=== PATIENT | female | born 1955 | race Caucasian/White ===

== ENCOUNTER → 2019-05-18 | Outpatient (CLI) | payer MEDICARE, MEDICAID ==
[~2019-05-18] MED LIST: ALTA10CA; BREO1INH INH; COMBAER6 INH; FISHCAP; LEVO25TA5 PO; LEVO750T13 PO; NORT25CA2; PREG100CA; SAVELLA; SEVELLA; SKEL800T5; VITAMIN D50000 UNT
--- NOTE | 2019-05-22 10:07 | SLEEPCENT ---
DATE OF PROCEDURE: 05/18/2019 ORDERED BY: Sandra Shanks NP Nocturnal polysomnography was performed for evaluation of sleep physiology in this patient with a history of snoring and nonrestorative sleep who has comorbidities of hypertension, hypothyroidism and obstructive lung disease. 8 hours and 43 minutes of data were reviewed. There are 362 minutes of sleep identified. Sleep latency was short at 6.5 minutes. Rapid eye movement (REM) latency was prolonged at 268 minutes. Sleep architecture showed severe fragmentation. There was one brief REM cycle. Overall sleep efficiency 69.9%. The patient's electrocardiogram showed a sinus rhythm with an average heart rate of 88 beats per minute. Electroencephalogram (EEG) showed normal waveforms for awake and sleep stages with some minor alpha intrusion. There were 404 respiratory events identified of 10 seconds in duration or greater for an apnea-hypopnea index of 67. The events were obstructive not exclusive to sleep stage nor body posture. Arousals from respiratory events occurred 53 times per hour, oxygen desaturations were seen into the low 80s. Some limb activity was also noted but arousals from limb events were few. IMPRESSION: Severe obstructive sleep apnea syndrome (G47.33). Apnea-hypopnea index 67.0. RECOMMENDATIONS: The patient should be encouraged to return to sleep disorder center at her earliest convenience for the application of pressure therapy. In the interim, alcohol and sedative avoidance should be practiced and caution exercised during the operation of motor vehicles.
== END ==
LOC: M SLEEP 20:00
PROVIDERS: ATTEND Nurse Practitioner Family
DX: G47.33 Obstructive sleep apnea (adult) (pediatric) (principal)

== ENCOUNTER → 2019-05-25 | Outpatient (CLI) | payer MEDICARE, MEDICAID ==
[~2019-05-25] MED LIST changes: +ANOR1AER INH; +ARNU1INH3 INH; +LASI20TA3 PO; +LASI40TA9 PO; +VITA1CAP25 PO
--- NOTE | 2019-05-28 14:33 | SLEEPCENT ---
DATE OF PROCEDURE: 05/25/2019 ORDERED BY: URBAN Mota Nocturnal polysomnography was performed for the titration of pressure therapy in this patient with obstructive sleep apnea syndrome. Apnea-hypopnea index of 67. For testing a Casimiro, Simplus full-face mask of small size was used; 4 cm of water pressure were applied to the circuit and the lights were extinguished. 7 hours and 34 minutes of data were reviewed. There were 335 minutes of sleep identified. Sleep latency was short at 5 minutes. Rapid eye movement (REM) latency was short at 62 minutes. Sleep architecture was fairly good with 2 REM cycles. Overall sleep efficiency 74.6%. The patient's electrocardiogram showed sinus rhythm with an average heart rate of 60 beats per minute. Occasional premature ventricular contractions (PVCs) were noted. Electroencephalogram (EEG) showed reasonably normal waveforms for awake and sleep. Respiratory events were best palliated with CPAP at a pressure of +9. There was scattered limb activity but remaining measures of sleep physiology were normal. IMPRESSION: Obstructive sleep apnea syndrome (G47.33)/ RECOMMENDATIONS: Nightly use of pressure therapy 9 cm of water.
== END ==
LOC: M SLEEP 20:00
PROVIDERS: ATTEND Nurse Practitioner Family
DX: G47.33 Obstructive sleep apnea (adult) (pediatric) (principal)

== ENCOUNTER 2019-06-06 09:57 | Day surgery (SDC) | payer MEDICARE, MEDICAID ==
[~2019-06-06] VITALS: Ht 167.6 cm; Wt 123.7 kg
[2019-06-06] MEDS ORDERED: PROPOFOL 200 MG/20 ML VIAL As Ordered ONE (11:50)
[2019-06-06] MEDS ORDERED: MIDAZOLAM INJ 2 MG/2 ML VIAL (J2250) As Ordered ONE (11:50)
[2019-06-06] MEDS ORDERED: LIDOCAINE 2% INJ 100 MG/5 ML SDV (FOR ANES.) As Ordered ONE (11:50)
[2019-06-06] MEDS ORDERED: ROCURONIUM BROMIDE 50 MG/5 ML VIAL As Ordered ONE ×2 (11:50→13:25)
[2019-06-06] MEDS ORDERED: fentaNYL 100 MCG/2 ML INJECTION (J3010) As Ordered ONE (11:50)
[2019-06-06] MEDS ORDERED: ceFAZolin 2 GM/D5W 50 ML IV BAG (J0690 PER 500MG) As Ordered ONE (12:53)
[2019-06-06] MEDS ORDERED: ceFAZolin SOD 2 GM in IV 1 EA IV ONE (13:00)
[2019-06-06] MEDS ORDERED: ONDANSETRON 4MG/2ML VIAL (J2405) As Ordered ONE (13:25)
[2019-06-06] MEDS ORDERED: dexameTHASONE 4 MG/ML 1ML VIAL (J1100) As Ordered ONE (13:25)
[2019-06-06] MEDS ORDERED: ePHEDrine SULFATE 25 MG/5 ML(5MG/ML) SYRINGE As Ordered ONE (13:32)
[2019-06-06] MEDS ORDERED: HYDROmorphone HCL 2 MG/ML 1ML VIAL (J1170) As Ordered ONE (13:42)
[2019-06-06] MEDS ORDERED: SUGAMMADEX SODIUM 500 MG/5 ML VIAL (BRIDION) As Ordered ONE (13:44)
[2019-06-06] MEDS ORDERED: METOCLOPRAMIDE INJ 10MG/2ML VIAL (J2765) As Ordered ONE (13:45)
--- NOTE | 2019-06-06 14:51 | REP ---
RETROGRADE PYELOGRAM: Four views. HISTORY: Cystoscopy. Bilateral ureteral stent. 9 seconds of fluoroscopy time is reported. FINDINGS: A sequence of four last image hold fluoroscopically obtained spot radiographs document ureteral cannulation, contrast injection, and stent positioning unilaterally. No laterality markers are visible. Electronically Signed by Luisito Smith MD 06/06/2019 04:44 P
[2019-06-06] MEDS ORDERED: ACETAMINOPHEN TAB 650MG DOSE (2X325MG) PO PRN (15:00)
[2019-06-06] MEDS ORDERED: ONDANSETRON 4MG/2ML VIAL (J2405) IV PRN (15:00)
[2019-06-06] MEDS ORDERED: oxyCODONE 5MG TAB PO PRN (15:00)
[2019-06-06] MEDS ORDERED: fentaNYL 100 MCG/2 ML INJECTION (J3010) IV PRN (15:00)
[2019-06-06] MEDS ORDERED: LR 1,000 ML IV SCH (15:00)
[2019-06-06] MEDS ORDERED: oxyBUTYnin 5 MG TAB PO PRN (15:15)
[2019-06-06 17:20] VITALS: BP 143/67
--- NOTE | 2019-06-06 22:25 | RO ---
DATE OF PROCEDURE: 06/06/2019 PREPROCEDURE DIAGNOSIS: Right renal and bladder tumors. POSTPROCEDURE DIAGNOSIS: Right renal and bladder tumors. PROCEDURES: Cystoscopy, right ureteroscopy with biopsies, right retrograde pyelogram with intraoperative interpretation of images, right ureteral stent placement, transurethral resection of bladder tumors (between 2 and 5 cm), examination under anesthesia. SURGEON: Dr. Justin Turcios GAS STATION MANAGER: None. ANESTHESIA: General. OPERATIVE INDICATIONS: This is a 63-year-old female, who on recent CT scan was found to have lesions in her right kidney concerning for tumors as well as in her bladder concerning for tumors. She was brought to the operating room today for the above listed procedures. DESCRIPTION OF PROCEDURE: The patient was brought to the operating room and general anesthesia was induced. Prophylactic antibiotics were infused. She was then placed in the dorsal lithotomy position and prepped and draped in the usual sterile fashion. At this point, a bimanual pelvic examination was performed under anesthesia. The bladder was freely mobile. There were no palpable bladder masses. After that, the cystoscope was inserted. The bladder was then thoroughly examined with both the 30- then 70-degree lenses. Three tumors were seen inside the bladder. One was on the right lateral wall near the bladder neck, the other two were in the left lateral wall, totalling between 2 and 5 cm. At this point, a guidewire was advanced up the right collecting system. I then advanced a ureteral access sheath up the right collecting system. I then examined the right kidney and of note, the patient had a very large amount of papillary tumors occupying the right renal pelvis and extending into the upper pole of the right kidney. Also, approximately at the ureteropelvic junction, there were additional papillary tumors. I then utilized biopsy forceps to take several biopsies of the tumors from the right renal pelvis to be sent for pathological analysis. Once that was done, a retrograde pyelogram was performed and is notable for mild right hydronephrosis with a filling defect in the renal pelvis and upper pole of the kidney. There was no extravasation. I then withdrew the ureteroscope along with the access sheath and no definite additional tumors were seen within the ureter. I then utilized the wire to advance a #7-Nicaraguan x 22-32 cm JJ ureteral stent up to the right collecting system. The wire was removed, and there were adequate curls of the stent in the right renal pelvis and in the bladder. At this point, I inserted a resectoscope and utilized it to resect all the tumors inside the bladder. I made sure to get samples down to the muscle layer. Once done with the resection, the areas of resection were then cauterized until there was good hemostasis. Once that was done, all of the tumors were removed from the bladder using an [employer] evacuator. Once satisfied there was good hemostasis and all the tumors were removed, the resectoscope was removed and an #18-Nicaraguan Mcclain catheter was inserted into the bladder. The balloon was filled with 10 mL of sterile water, and the catheter was connected to gravity drainage. This marked the conclusion of the procedure. The patient was then taken out of the dorsal lithotomy position, awakened from anesthesia and transported to the recovery room in stable condition. Estimated blood loss: 5 mL. Complications: None. Specimens: Tumor from right renal pelvis, bladder tumors. PLAN: The patient will followup in the clinic in approximately 1 week to discuss pathology results and have catheter removed. CONNER
[2019-06-26] MEDS ORDERED: APAP500T10 PO (14:26)
[2019-06-26] MEDS ORDERED: DITR5TAB PO (14:26)
[2019-06-26] MEDS ORDERED: AMOX875T2 PO (14:26)
== END 2019-06-06 18:00 | disposition home or self-care (01) ==
LOC: M SDC 09:57
PROVIDERS: ATTEND Urology
DX: C67.9 Malignant neoplasm of bladder, unspecified (principal); I10 Essential (primary) hypertension; E03.9 Hypothyroidism, unspecified; E04.1 Nontoxic single thyroid nodule; K57.30 Diverticulosis of large intestine without perforation or abscess without bleeding; G62.9 Polyneuropathy, unspecified; M12.9 Arthropathy, unspecified; J44.9 Chronic obstructive pulmonary disease, unspecified; R06.83 Snoring; G47.33 Obstructive sleep apnea (adult) (pediatric); F17.218 Nicotine dependence, cigarettes, with other nicotine-induced disorders; Z88.1 Allergy status to other antibiotic agents; Z88.6 Allergy status to analgesic agent; Z79.899 Other long term (current) drug therapy; Z12.2 Encounter for screening for malignant neoplasm of respiratory organs; Z96.1 Presence of intraocular lens; Z90.710 Acquired absence of both cervix and uterus
CPT/HCPCS: 52235; 52332; 74420; 88305; 88307; C1769; C1894; C2617; G0297; J0690; J1100; J1170; J2250; J2405; J2765; J3010

== ENCOUNTER → 2019-06-06 | Outpatient (CLI) | payer MEDICARE, MEDICAID ==
--- NOTE | 2019-06-06 10:44 | REP ---
LOW DOSE LUNG SCREENING CT: Low dose lung screening CT exam is accomplished in the axial plane. There are no prior CT chest exams for comparison. There is a 3 mm nodular opacity in the left upper lobe posteriorly on image 23. This is of doubtful significance. No other definite focal nodular opacities are seen. There are scattered linear fibrotic scars present predominantly in the lung bases. No consolidation is seen. The heart is not significantly enlarged. No pleural effusion is seen. The mediastinal contours appear unremarkable. There are degenerative changes of the spine. IMPRESSION: Lung RADS category [address] There is a single 3 mm nodular density posterior left upper lobe, which is of doubtful significance. Continue annual screening CT of the lungs in 12 months. Electronically Signed by Castro Arana MD 06/06/2019 11:08 A
== END ==
LOC: M RAD 09:24
PROVIDERS: ATTEND Nurse Practitioner Family
DX: Z12.2 Encounter for screening for malignant neoplasm of respiratory organs (principal); F17.218 Nicotine dependence, cigarettes, with other nicotine-induced disorders

== ENCOUNTER → 2019-06-26 | Outpatient (CLI) | payer MEDICARE, MEDICAID ==
[~2019-06-26] MED LIST changes: +AMOX875T2 PO; +APAP500T10 PO; +DITR5TAB PO
--- NOTE | 2019-06-27 04:37 | REP ---
Clinical: Follow-up pulmonary nodule. Comparison: 06/06/2019. Technique: Axial noncontrast images from the thoracic inlet to the upper abdomen with coronal and sagittal re-formations. Findings: Bilateral lung lipscomb are relatively well aerated, symmetric and essentially clear. A 2 mm noncalcified nodule in the periphery of the right upper lobe (image 48), and a 1-2 mm noncalcified subpleural nodule in the posterior periphery of the left upper lobe (image 48) both remain stable. 2 mm noncalcified subpleural nodule in the left lower lobe (image 75) also remains stable. No new acute consolidation, significant nodule or mass lesion. No pleural effusion. No pneumothorax. Tracheobronchial tree is patent. Mediastinum is relatively normal. Minimal atherosclerotic changes to the thoracic aorta and coronary arteries noted. Surrounding musculoskeletal structures are intact. Impression: Small relatively insignificant noncalcified nodules up to 2 mm remain unchanged. No new acute or significant mediastinal or pleuroparenchymal process appreciated. Electronically Signed by Ramiro Villa MD 06/27/2019 04:27 A
== END ==
LOC: M RAD 14:06
PROVIDERS: ATTEND Nurse Practitioner Family
DX: R91.8 Other nonspecific abnormal finding of lung field (principal)

== ENCOUNTER 2019-07-14 05:36 | Inpatient (IN) | payer MEDICARE, MEDICAID ==
[~2019-07-14] VITALS: Ht 170.2 cm; Wt 120.5 kg
[2019-07-14] MEDS ORDERED: LR 1,000 ML IV ONE (06:00)
[2019-07-14] MEDS ORDERED: BUPIVACAINE HCL 0.25% 30 ML VIAL As Ordered ONE (07:15)
[2019-07-14] MEDS ORDERED: LIDOCAINE 1% SDV INJ 30 ML VIAL As Ordered ONE (07:15)
[2019-07-14] MEDS ORDERED: ceFAZolin 2 GM/D5W 50 ML IV BAG (J0690 PER 500MG) As Ordered ONE (07:25)
[2019-07-14] MEDS ORDERED: PERCOCET 5MG/325MG TAB PO PRN (07:45)
[2019-07-14] MEDS ORDERED: MORPHINE 4 MG/ML 1ML VIAL/SYRINGE (J2270) IV PRN (07:45)
[2019-07-14] MEDS ORDERED: ONDANSETRON 4MG/2ML VIAL (J2405) IV PRN ×2 (07:45→14:45)
[2019-07-14] MEDS ORDERED: ceFAZolin SOD 2 GM in IV 1 EA IV ONE (08:00)
[2019-07-14] MEDS ORDERED: ONDANSETRON 4MG/2ML VIAL (J2405) As Ordered ONE (08:11)
[2019-07-14] MEDS ORDERED: LIDOCAINE 2% INJ 100 MG/5 ML SDV (FOR ANES.) As Ordered ONE (08:11)
[2019-07-14] MEDS ORDERED: fentaNYL 250 MCG/5 ML INJECTION (J3010) As Ordered ONE (08:11)
[2019-07-14] MEDS ORDERED: dexameTHASONE 4 MG/ML 1ML VIAL (J1100) As Ordered ONE (08:11)
[2019-07-14] MEDS ORDERED: MIDAZOLAM INJ 2 MG/2 ML VIAL (J2250) As Ordered ONE (08:11)
[2019-07-14] MEDS ORDERED: ROCURONIUM BROMIDE 50 MG/5 ML VIAL As Ordered ONE ×3 (08:11→11:06)
[2019-07-14] MEDS ORDERED: PROPOFOL 200 MG/20 ML VIAL As Ordered ONE ×2 (08:11→13:51)
[2019-07-14] MEDS ORDERED: ALBUTEROL 6.7GM INHALER **FOR ANES. CART/OMNICELL ONLY As Ordered ONE (08:20)
[2019-07-14] MEDS ORDERED: LACRILUBE (AKWA TEARS) OPHTH OINT 3.5 GM As Ordered ONE (08:20)
[2019-07-14] MEDS ORDERED: ePHEDrine SULFATE 25 MG/5 ML(5MG/ML) SYRINGE As Ordered ONE (08:25)
[2019-07-14] MEDS ORDERED: COMBIVENT RESPIMAT 100-20MCG INHALER 4GM INH SCH (09:00)
[2019-07-14] MEDS ORDERED: HYDROmorphone HCL 2 MG/ML 1ML VIAL (J1170) As Ordered ONE (09:17)
[2019-07-14] MEDS ORDERED: SUGAMMADEX SODIUM 500 MG/5 ML VIAL (BRIDION) As Ordered ONE (09:20)
[2019-07-14] MEDS ORDERED: ACETAMINOPHEN 1000MG 100ML IV BTL (OFIRMEV) (J0131 PER 10MG) As Ordered ONE (12:49)
[2019-07-14] MEDS ORDERED: oxyCODONE 5MG TAB PO PRN (14:45)
[2019-07-14] MEDS ORDERED: LR 1,000 ML IV SCH (14:45)
[2019-07-14] MEDS ORDERED: fentaNYL 100 MCG/2 ML INJECTION (J3010) IV PRN (14:45)
[2019-07-14] MEDS: HYDROMORPHONE HCL 0.5 MG/ 0.5 ML SYRINGE (J1170 PER 1) IV PRN ×3 (14:48→14:57)
--- NOTE | 2019-07-14 14:49 | ROOPDOC ---
[facility] Report Of Operation Report of Operation DATE OF PROCEDURE: 07/14/19 PREPROCEDURE DIAGNOSES: Urothelial Carcinoma of the Right Kidney. POSTPROCEDURE DIAGNOSES: Urothelial Carcinoma of the Right Kidney. PROCEDURE: Right Robotic-assisted Laparoscopic Radical Nephroureterectomy with Bladder Cuff, Cystoscopy with Incision of the Right Ureteral Orifice. SURGEON: Valentina Rizo MD WOOD CALKER: Klarissa Duron NP ANESTHESIA: General OPERATIVE INDICATIONS: This is a 63 year old female who was recently found to have low grade urothelial carcinoma involving her entire right renal pelvis. She was brought to the operating room today for the above procedure. DESCRIPTION OF PROCEDURE: The patient was brought to the operating room and general anesthesia was induced. Prophylactic antibiotics were infused. The patient was then placed in the dorsal lithotomy position and prepped and draped in the usual sterile fashion. A rigid cystoscope was inserted into the bladder and the previously placed right ureteral stent was seen. At this point a resectoscope was inserted into the bladder and a circumferential incision was made around the right ureteral orifice using a Larsen Knife. The incision was carried down through the muscle layer. Once this was done and hemstasis was established an 18Fr Mcclain catheter was placed and the balloon was inflated with 10cc of sterile water. The catheter was then placed to gravity drainage. The patient was then taken out of the dorsal lithotomy position. She was then repositioned in the left lateral decubitus position. All pressure points were appropriately padded and an axillary roll was placed. She was secured to the table with tape. The patient was then prepped and draped in the usual sterile fashion. The initial incision was for an 8mm port in line with the 11th rib along the lateral rectus margin. A Veress needle was then utilized to achieve the pneumoperitoneum. An 8mm port was then placed in through this incision and through which the camera was inserted. There were no injuries from Veress needle placement or initial trocar placement. The remaining ports were then placed under direct vision. The right hand robotic port was placed along the costal margin. Another 5 mm port was placed just inferior to the xyphoid for access for a liver retractor. A 12mm robotic port was placed just inferior to the camera port, also on the lateral rectus margin. The left hand robotic port was placed between the anterior-superior iliac spine and the umbilicus. A 15mm health education assistant port was placed inferior and medial to the camera port. The robot was then docked. We began by lifting up the liver with a laparoscopic locking Allis clamp. Next the right colon was dissected off of Gerota's fascia. We then Kocherized the duodenum. At this point the inferior vena cava (IVC) was identified. A plane was made onto the lateral aspect of the IVC. Of note, two renal veins were identified. One artery was identified in between the 2 veins. The artery was carefully dissected and then ligated with Weck clips. It was then transected, leaving 2 Weck clips on the stay side and 1 on the kidney side. Next, a robotic 45mm stapler was utilized to ligate and transect both right renal veins. Once the hilum was taken, a plane onto the upper pole of the kidney was created and the right adrenal gland was mobilized off of the kidney. The kidney was then carefully dissected on all sides until it was only connected by the right ureter. The right ureter was then dissected down to the level of the bladder. The bl adder was then opened at the right ureterovesical junction and the distal right ureter was released from the bladder with a bladder cuff. The previously placed stent was taken out with the kidney and ureter. The right kidney and ureter were then placed in a large Endocatch bag for future retrieval. We then checked for hemostasis and it appeared excellent. Vincent hemostatic agent was then placed in the nephrectomy bed. At this point a Britton Ying drain was brought in through one of the robotic port sites and the distal end of it was placed in the pelvis near the bladder. Once satisfied with hemostasis, the robot was undocked. We th en used a Uriel fascial closure device to place a #0 Vicryl free ties through the fascia of the 15 mm health education assistant port sites. We then extended the 12 mm robotic port site incision. We then dissected down to the fascia. The fascia was then extended using electrocautery. The muscle was bluntly spread. The specimen was then extracted through this incision. It was handed off the table to send for pathology. We then closed the extraction incision, starting first by reapproximating the muscle with figure of eight #0 Vicryl suture. The fascia was then closed using a running #0 Vicryl suture. At this point, the abdomen was reinsufflated and we looked back in with the camera and there was no bleeding underneath the extraction site. No abdominal contents were caught within the closure either. We then removed all the ports under direct vision and there was no bleeding from any of the port sites. At this point, the previously placed #0 Vicryl free ties were tied down and all the incisions were thoroughly irrigated. The drain was secured to the skin with #2-0 Ethilon suture. The subcutaneous tissue of the extraction incision was then reapproximated using interrupted #3-0 Vicryl suture. We then closed the skin of each site using a running #4-0 subcuticular Monocryl stitch. Local anesthetic was then applied to each incision and Dermabond was then applied and this marked the conclusion of the procedure. The patient was then taken out of the left lateral decubitus position, awakened from anesthesia and transported to the recovery room in stable condition. ESTIMATED BLOOD LOSS: 100 mL INTRAOPERATIVE COMPLICATIONS: None SPECIMENS: Right kidney and ureter with bladder cuff. PLAN: The patient will be admitted to the hospital postoperatively and she will be discharged home once her renal function is stable and she is tolerating a regular diet. VALENTINA RIZO MD Jul 14, 2019 14:49
[2019-07-14 14:51] LABS: HEMATOCRIT 41.6 % (36.0-47.0); HEMOGLOBIN 13.2 g/dl (12.0-15.5); MEAN CORPUSCULAR HGB CONC 31.7 g/dl (32.0-36.5); MEAN CORPUSCULAR VOLUME 100.7 fl (80.0-96.0); PLATELET COUNT, AUTOMATED 259 10^3/uL (150-450); RED BLOOD COUNT 4.13 10^6/uL (4.00-5.40); WHITE BLOOD COUNT 13.4 10^3/uL (4.0-10.0)
[2019-07-14 15:18] LABS: CALCIUM LEVEL 8.5 MG/DL (8.8-10.2); CREATININE FOR GFR 1.13 MG/DL (0.55-1.30); GLOMERULAR FILTRATION RATE 51.4 (>45)
[2019-07-14] MEDS: HEPARIN SOD (PORCINE) 5000 UNITS/ML VIAL SC SCH ×2 (17:24→21:34)
[2019-07-14] MEDS: DOCUSATE SODIUM 100 MG CAP PO SCH ×2 (17:24→21:35)
[2019-07-14] MEDS: ceFAZolin SOD 1 GM in D5W MINI-BAG PLUS 50 ML IV SCH (17:25)
[2019-07-14] MEDS: PERCOCET 5MG/325MG TAB PO PRN ×2 (17:25→21:35)
[2019-07-14] MEDS: NS 1,000 ML IV SCH ×2 (17:25→21:30)
[2019-07-14 18:00] VITALS: BP 136/74
[2019-07-14 19:27] VITALS: BP 131/70
[2019-07-14 21:00] VITALS: BP 128/69
[2019-07-14] MEDS: COMBIVENT RESPIMAT 100-20MCG INHALER 4GM INH SCH (21:10)
[2019-07-14 22:00] VITALS: BP 133/69
[2019-07-15] MEDS: ceFAZolin SOD 1 GM in D5W MINI-BAG PLUS 50 ML IV SCH (00:38)
[2019-07-15 02:00] VITALS: BP 116/58
[2019-07-15] MEDS: NS 1,000 ML IV SCH (02:30)
[2019-07-15] MEDS: HEPARIN SOD (PORCINE) 5000 UNITS/ML VIAL SC SCH ×3 (05:59→20:19)
[2019-07-15] MEDS: LEVOTHYROXINE 25MCG TABLET (0.025MG) PO SCH (05:59)
[2019-07-15 06:00] VITALS: BP 112/63
[2019-07-15 06:26] LABS: HEMATOCRIT 36.6 % (36.0-47.0); HEMOGLOBIN 11.5 g/dl (12.0-15.5); MEAN CORPUSCULAR HEMOGLOBIN 31.6 pg (27.0-33.0); MEAN CORPUSCULAR HGB CONC 31.4 g/dl (32.0-36.5); MEAN CORPUSCULAR VOLUME 100.5 fl (80.0-96.0); PLATELET COUNT, AUTOMATED 235 10^3/uL (150-450); RED BLOOD COUNT 3.64 10^6/uL (4.00-5.40); WHITE BLOOD COUNT 12.5 10^3/uL (4.0-10.0)
[2019-07-15 06:43] LABS: CALCIUM LEVEL 7.8 MG/DL (8.8-10.2); CREATININE FOR GFR 1.13 MG/DL (0.55-1.30); GLOMERULAR FILTRATION RATE 51.4 (>45); POTASSIUM SERUM 4.1 MEQ/L (3.5-5.1)
[2019-07-15] MEDS: COMBIVENT RESPIMAT 100-20MCG INHALER 4GM INH SCH ×2 (07:38→17:53)
[2019-07-15] MEDS: DOCUSATE SODIUM 100 MG CAP PO SCH ×2 (08:31→20:19)
--- NOTE | 2019-07-15 08:59 | IPNPDOC ---
Subjective Review oF Systems Chief Complaint The patient is a 63-year-old female admitted with a reason for visit of Urothelial Carcinoma. Events since Last Encounter No acute events o/n. Good pain control. No n/v. No f/c/ns. Objective Physical Examination General Exam: Alert, Cooperative, No Acute Distress ABDOMEN EXAM: Soft, Tenderness (mild), Other (incisions clean/dry/intact; MARTINEZ w/ serosang output) Skin Exam: Nl turgor and temperature Neuro Exam: Normal Speech Psych Exam: Mental status NL, Mood NL Other physical findings catheter draining clear urine Vital Signs/I&O Vital Signs Date Time Temp Pulse Resp B/P (MAP) Pulse Ox O2 Delivery O2 Flow Rate FiO2 07/15/19 06:00 97.8 95 24 112/63 (79) 95 07/14/19 22:00 2.0 I&O- Last 24 Hours up to 6 AM 07/15/19 06:00 Intake Total 2700 ml Output Total 1105 ml Balance 1595 ml Laboratory Data Labs 24H Laboratory Tests 2 07/14/19 14:38: Nucleated Red Blood Cells % (auto) 0.0, Anion Gap 6L, Glomerular Filtration Rate 51.4, Blood Urea Nitrogen 17, Creatinine 1.13, Sodium Level 139, Potassium Level 4.0, Chloride Level 107, Carbon Dioxide Level 26, Calcium Level 8.5L 07/15/19 05:47: Nucleated Red Blood Cells % (auto) 0.0, Anion Gap 4L, Glomerular Filtration Rate 51.4, Blood Urea Nitrogen 16, Creatinine 1.13, Sodium Level 143, Potassium Level 4.1, Chloride Level 110H, Carbon Dioxide Level 29, Calcium Level 7.8L CBC/BMP Laboratory Tests 07/14/19 14:38 Red Blood Count 4.13, Mean Corpuscular Volume 100.7 H, Mean Corpuscular Hemoglobin 32.0, Mean Corpuscular Hemoglobin Concent 31.7 L, Red Cell Distribution Width 13.8, Calcium Level 8.5 L 07/15/19 05:47 Red Blood Count 3.64 L, Mean Corpuscular Volume 100.5 H, Mean Corpuscular Hemoglobin 31.6, Mean Corpuscular Hemoglobin Concent 31.4 L, Red Cell Distribution Width 14.0, Calcium Level 7.8 L Assessment/Plan Date Seen The patient was seen on 07/15/19. Patient Summary This is a 63 y/o F POD1 s/p right robotic nephroureterectomy. Her Cr is stable at 1.1. UOP is marginal. Plan/VTE VTE Prophylaxis Ordered?: Yes VTE Exclusion Mechanical Proph: N/A:VTE Prophy Ordered VTE Exclusion Pharmacological: N/A:VTE Prophy Ordered Plan/Urinary Catheter Urinary Catheter: Other Catheter: (catheter will need to stay in for 7-10 days given bladder surgery) Plan - d/c IVF - lasix 10mg IV - percocet prn pain - continue home meds - strict I/Os - SCDs in bed - SQH - incentive spirometry - CLD -> ADAT - possible discharge later today w/ catheter (will remove MARTINEZ drain prior to discharge) VALENTINA RIZO MD Jul 15, 2019 08:59
[2019-07-15] MEDS ORDERED: FUROSEMIDE 20 MG/2 ML VIAL (J1940) IV ONE (09:00)
[2019-07-15 10:06] VITALS: BP 96/58
[2019-07-15] MEDS: PERCOCET 5MG/325MG TAB PO PRN ×2 (10:20→20:20)
[2019-07-15 14:26] VITALS: BP 91/57
[2019-07-15] MEDS ORDERED: IPRATROPIUM 0.5MG/ALBUTEROL 2.5MG INH SOL UD 3ML (DUONEB)(J7620) NEB PRN (15:30)
[2019-07-15 22:00] VITALS: BP 114/68
[2019-07-16] MEDS: PERCOCET 5MG/325MG TAB PO PRN (01:21)
[2019-07-16] MEDS: LEVOTHYROXINE 25MCG TABLET (0.025MG) PO SCH (05:51)
[2019-07-16] MEDS: HEPARIN SOD (PORCINE) 5000 UNITS/ML VIAL SC SCH ×3 (05:52→20:56)
[2019-07-16 06:00] VITALS: BP 135/77
[2019-07-16 06:36] LABS: HEMATOCRIT 39.2 % (36.0-47.0); HEMOGLOBIN 12.3 g/dl (12.0-15.5); MEAN CORPUSCULAR HEMOGLOBIN 31.8 pg (27.0-33.0); MEAN CORPUSCULAR HGB CONC 31.4 g/dl (32.0-36.5); MEAN CORPUSCULAR VOLUME 101.3 fl (80.0-96.0); PLATELET COUNT, AUTOMATED 202 10^3/uL (150-450); RED BLOOD COUNT 3.87 10^6/uL (4.00-5.40); WHITE BLOOD COUNT 9.3 10^3/uL (4.0-10.0)
[2019-07-16 07:01] LABS: CALCIUM LEVEL 8.3 MG/DL (8.8-10.2); CREATININE FOR GFR 1.07 MG/DL (0.55-1.30); GLOMERULAR FILTRATION RATE 54.8 (>45); POTASSIUM SERUM 4.3 MEQ/L (3.5-5.1)
[2019-07-16] MEDS: COMBIVENT RESPIMAT 100-20MCG INHALER 4GM INH SCH ×2 (07:44→20:00)
[2019-07-16] MEDS: DOCUSATE SODIUM 100 MG CAP PO SCH ×2 (08:37→20:56)
[2019-07-16] MEDS ORDERED: FLUBLOK(EGG FREE)(QUAD)INFLUENZA VACC 0.5ML SYRINGE (90682)18YRS&OLDER IM ONE (09:00)
--- NOTE | 2019-07-16 09:45 | IPNPDOC ---
Subjective Review oF Systems Chief Complaint The patient is a 63-year-old female admitted with a reason for visit of Urothelial Carcinoma. Events since Last Encounter No acute events o/n. Good pain control w/ percocet. Patient notes she is ambulating w/o difficulty. No n/v. No flatus yet. Tolerating regular diet. Denies SOB or chest pain. Notes she has not used the incentive spirometer yet. No f/c/ns. Objective Physical Examination General Exam: Alert, Cooperative, No Acute Distress ABDOMEN EXAM: Soft, Tenderness (mild), Other (incisions clean/dry/intact; MARTINEZ w/ serous output) Skin Exam: Nl turgor and temperature Neuro Exam: Normal Speech Psych Exam: Mental status NL, Mood NL Other physical findings catheter draining clear urine Vital Signs/I&O Vital Signs Date Time Temp Pulse Resp B/P (MAP) Pulse Ox O2 Delivery O2 Flow Rate FiO2 07/16/19 09:13 25 1.0 07/16/19 06:00 98.7 99 135/77 (96) 96 I&O- Last 24 Hours up to 6 AM 07/16/19 06:00 Intake Total 1335 ml Output Total 3370 ml Balance -2035 ml Laboratory Data Labs 24H Laboratory Tests 2 07/16/19 06:12: Nucleated Red Blood Cells % (auto) 0.0, Anion Gap 3L, Glomerular Filtration Rate 54.8, Calcium Level 8.3L CBC/BMP Laboratory Tests 07/16/19 06:12 Assessment/Plan Date Seen The patient was seen on 07/16/19. Patient Summary This is a 63 y/o F POD2 s/p right robotic nephroureterectomy w/ bladder cuff. She is doing well w/ the exception of difficulty weaning her off O2. She notes that she has not used the incentive spirometer yet. Hb and Cr are stable. UOP has been very good. Plan/VTE VTE Prophylaxis Ordered?: Yes VTE Exclusion Mechanical Proph: N/A:VTE Prophy Ordered VTE Exclusion Pharmacological: N/A:VTE Prophy Ordered Plan/Urinary Catheter Urinary Catheter: Other Catheter: (catheter will need to stay in for 7-10 days given bladder surgery) Plan - patient encouraged to start using the incentive spirometer - percocet prn pain - strict I/Os - SCDs when in bed - SQH - ambulate - regular diet - possible discharge home later today w/ catheter if able to wean patient off O2 (will d/c MARTINEZ drain prior to discharge) VALENTINA RIZO MD Jul 16, 2019 09:45
[2019-07-16 14:15] VITALS: BP 134/79
[2019-07-16] MEDS ORDERED: IPRATROPIUM 0.5MG/ALBUTEROL 2.5MG INH SOL UD 3ML (DUONEB)(J7620) NEB PRN (16:30)
--- NOTE | 2019-07-16 16:45 | CR ---
DATE OF CONSULTATION: 07/16/2019 PRIMARY CARE PROVIDER: Dr. Rojelio Hernández ELECTRONICS TEST ENGINEER: Dr. Godfrey COUPON AND BOND COLLECTION CLERK: Dr. Childress CONSULTATION REQUESTED OF: Hospitalist group. HISTORY: Dr. Turcios called and requested medical consultation on Sabina Pastor for hypoxemia. Her oxygen saturations were 77% on room air and went up to 86% on supplemental oxygen. The hospitalist group was consulted for pulmonary evaluation. She has a history of chronic obstructive pulmonary disease (COPD), as well as severe sleep apnea. She says that when she sees Dr. Hernández her baseline oxygen saturations are 87 to 90% on room air. Apparently, she was prescribed supplemental oxygen at one point but she did not use it and so it was returned. She recently had an episode of pedal edema attributed to quinolone use for a urinary tract infection that she was diuresed out of by Dr. Hernández. Preoperatively, the patient saw Dr. Dilan Childress for cardiology consultation. He did an echocardiogram that showed an ejection fraction normal at 50 to 60%. Normal echocardiogram. Interestingly, felt to have normal right ventricular systolic pressure when she was seen by [facility]. She had a sleep test done and was found to have severe sleep apnea and was felt to need CPAP. PAST MEDICAL HISTORY: 1. Hypothyroidism. 2. Hypertensive heart disease. 3. Morbid obesity. 4. COPD, continued tobacco abuse. SOCIAL HISTORY: She still smokes. CURRENT MEDICATIONS: - DuoNeb every 4 hours as needed - Levothyroxine 25 mcg daily - subcutaneous heparin for deep vein thrombosis (DVT) prophylaxis - analgesics, including acetaminophen, Percocet, and morphine ALLERGIES: CIPRO, FLUOXETINE, LEVAQUIN, MELOXICAM, NAPROXEN. REVIEW OF SYSTEMS: She denies hemoptysis, sputum production, fever, chills. She has had increased shortness of breath since biopsy was performed sometime recently. Looking through [facility] I found that she had a low dose screening CT of her lungs on 06/06/2019 followed by a conventional CT of the chest without contrast that showed no significant pulmonary nodules, no acute or significant mediastinal, pleural or parenchymal processes were appreciated. PHYSICAL EXAMINATION: VITAL SIGNS: Per flow sheet. Oxygen saturation is 86% on 1 liter. GENERAL APPEARANCE: She is lying in bed. Morbidly obese, thick neck, narrow airway. Pickwickian appearance. LUNGS: Expiratory wheezes in all lipscomb. HEART: Regular rhythm. No murmur. ABDOMEN: Soft, nontender. No masses. EXTREMITIES: 1+ peripheral edema. No clubbing or cyanosis. Normal strength in the arms and legs. LABORATORIES: White count 9.3, hemoglobin 12.6, platelets 202. Sodium 143, potassium 4.3, BUN 16, creatinine 1.0, glucose 79. IMPRESSION: 1. Hypoxemia. The patient has baseline chronic obstructive pulmonary disease (COPD) with hypoventilatory syndrome probably related to her morbid obesity and until recently untreated severe sleep apnea. I will order a chest x-ray and a D-dimer. If D-dimer is elevated, would recommend CT angiogram of the chest. Dr. Bean is covering the hospitalist service after my sign out. He and I discussed the case and he is aware of the pending testing. 2. Exacerbation of COPD. She has significant wheezing. I will give her some intravenous steroid. Increase frequency of her nebulized bronchodilator. Chest x-ray is pending and potentially a spiral CT angiogram. 3. Obstructive sleep apnea. She has severe PANKAJ. She should be on CPAP. She is on PANKAJ protocol. 4. Lower extremity edema. She looks volume overloaded. We will change her diet to 2 gram sodium. I will give her a single dose of intravenous Lasix. Followup laboratories have already been ordered. 5. Hypothyroidism. Continue current dose of levothyroxine. 6. Tobacco abuse. The importance of smoking cessation is stressed.
[2019-07-16] MEDS ORDERED: FUROSEMIDE 40 MG/4 ML VIAL (J1940) IV ONE (17:00)
[2019-07-16] MEDS ORDERED: ISOVUE-370 76% 100ML VIAL (Q9967) As Ordered ONE (18:55)
--- NOTE | 2019-07-16 18:59 | REP ---
Two-view chest: 07/16/2019. Indication: Hypoxemia. Comparison: None. Findings: There is near complete opacification of the left hemithorax with leftward shift of the midline structures. The right lung is clear. No definite pneumothorax is detected. Impression: Left lung collapse with shift of the midline structures leftward. Electronically Signed by Eduardo Edmonds DO 07/16/2019 06:51 P
--- NOTE | 2019-07-16 19:55 | REPVR ---
PROCEDURE INFORMATION: Exam: CT Angiography Chest With Contrast Exam date and time: 07/16/2019 7:11 PM Clinical history: 63 years old, female; Shortness of breath; Additional info: Assess for pulmonary embolism TECHNIQUE: Imaging protocol: Computed tomographic angiography of the chest with intravenous contrast. 3D rendering: MIP reconstructed images were created and reviewed. Radiation optimization: All CT scans at this facility use at least one of these dose optimization techniques: automated exposure control; mA and/or kV adjustment per patient size (includes targeted exams where dose is matched to clinical indication); or iterative reconstruction. Contrast material: ISOVUE 370; Contrast volume: 75 ml; Contrast route: IV; COMPARISON: CT Chest without contrast 06/26/2019 2:19 PM FINDINGS: Pulmonary arteries: Peripheral pulmonary artery evaluation limited by cardiac and respiratory motion artifact. Central pulmonary arteries show no intraluminal defect suggestive of clot. Aorta: No thoracic aortic aneurysm or dissection. Lungs: Left hemithorax volume loss with hemidiaphragm elevation and atelectasis involving a large portion of the lung. No central endobronchial lesion. Right lung demonstrates normal aeration with no mass or infiltrate. Pulmonary vascular/interstitial pattern does not suggest active pulmonary edema. Pleural space: Dependent bilateral pleural effusions are present, left larger than right. No pneumothorax. Heart: No cardiac enlargement or pericardial effusion. Lymph nodes: No enlarged lymph nodes. Bones/joints: Bony structures show no acute fracture or destructive process. Soft tissues: Unremarkable. IMPRESSION: 1. No evidence of acute, central pulmonary embolus. Limited peripheral vessel evaluation secondary to motion artifact 2. Bilateral pleural effusions, left greater than right, with partial atelectasis/collapse of the left lung, without central endobronchial lesion. This could be secondary to aspiration with post obstructive collapse. Electronically signed by: Raghav John On 07/16/2019 19:55:04 PM
[2019-07-16] MEDS: IPRATROPIUM 0.5MG/ALBUTEROL 2.5MG INH SOL UD 3ML (DUONEB)(J7620) NEB SCH (20:38)
[2019-07-16] MEDS: methylPREDNISolone INJ 125 MG/2 ML VIAL (J2930) IV SCH (20:56)
[2019-07-16 21:35] VITALS: BP 135/76
[2019-07-16 22:30] VITALS: BP 125/72
[2019-07-17] VITALS (7 sets, daily range): BP systolic 130–156; BP diastolic 66–83; O2SAT 95
[2019-07-17] MEDS: IPRATROPIUM 0.5MG/ALBUTEROL 2.5MG INH SOL UD 3ML (DUONEB)(J7620) NEB SCH ×4 (03:58→19:46)
[2019-07-17 05:16] LABS: HEMOGLOBIN 12.6 g/dl (12.0-15.5); MEAN CORPUSCULAR HEMOGLOBIN 31.2 pg (27.0-33.0); MEAN CORPUSCULAR HGB CONC 31.5 g/dl (32.0-36.5); PLATELET COUNT, AUTOMATED 233 10^3/uL (150-450); RED BLOOD COUNT 4.04 10^6/uL (4.00-5.40); WHITE BLOOD COUNT 11.8 10^3/uL (4.0-10.0)
[2019-07-17 05:28] LABS: CALCIUM LEVEL 8.9 MG/DL (8.8-10.2); GLOMERULAR FILTRATION RATE 59.2 (>45); POTASSIUM SERUM 4.3 MEQ/L (3.5-5.1)
[2019-07-17] MEDS: LEVOTHYROXINE 25MCG TABLET (0.025MG) PO SCH (06:12)
[2019-07-17] MEDS: HEPARIN SOD (PORCINE) 5000 UNITS/ML VIAL SC SCH ×3 (06:13→21:59)
[2019-07-17] MEDS: COMBIVENT RESPIMAT 100-20MCG INHALER 4GM INH SCH ×2 (07:47→20:00)
[2019-07-17] MEDS: methylPREDNISolone INJ 125 MG/2 ML VIAL (J2930) IV SCH ×2 (08:49→21:59)
[2019-07-17] MEDS: DOCUSATE SODIUM 100 MG CAP PO SCH ×2 (08:49→21:59)
--- NOTE | 2019-07-17 11:02 | IPNPDOC ---
Subjective Review oF Systems Chief Complaint The patient is a 63-year-old female admitted with a reason for visit of Urothelial Carcinoma. Events since Last Encounter Patient continued to desat yesterday off of O2. The hospitalist service was consulted a a CT chest was performed. It was notable for bilateral pleural effusions, left greater than right, with partial atelectasis/collapse of the left lung. The patient was therefore transferred to the PCU for closer monitoring. She notes mild SOB, but otherwise feels well. Her pain is controlled. She is ambulating. She is passing flatus. No n/v. No f/c/ns. Objective Physical Examination General Exam: Alert, Cooperative, No Acute Distress ABDOMEN EXAM: Soft, Tenderness (mild), Other (incisions clean/dry/intact; MARTINEZ w/ serous output) Skin Exam: Nl turgor and temperature Neuro Exam: Normal Speech Psych Exam: Mental status NL, Mood NL Other physical findings catheter draining clear urine Vital Signs/I&O Vital Signs Date Time Temp Pulse Resp B/P (MAP) Pulse Ox O2 Delivery O2 Flow Rate FiO2 07/17/19 08:00 97.8 90 18 148/83 (104) 95 2.0 07/17/19 00:00 Nasal Cannula I&O- Last 24 Hours up to 6 AM 07/17/19 06:00 Intake Total 1320 ml Output Total 3860 ml Balance -2540 ml Laboratory Data Labs 24H Laboratory Tests 2 07/16/19 17:11: D-Dimer, Quantitative 3709.32H 07/17/19 04:50: Nucleated Red Blood Cells % (auto) 0.0, Anion Gap 3L, Glomerular Filtration Rate 59.2, Calcium Level 8.9 CBC/BMP Laboratory Tests 07/17/19 04:50 Assessment/Plan Date Seen The patient was seen on 07/17/19. Patient Summary This is a 63 y/o F POD3 right robotic nephroureterectomy, now found to have bilateral pleural effusions, with partial atelectasis/collapse of the left lung on chest CT. Her Hb is stable. Cr is stable at 1. She diuresed very well w/ lasix yesterday. MARTINEZ output is minimal. Plan/VTE VTE Prophylaxis Ordered?: Yes VTE Exclusion Mechanical Proph: N/A:VTE Prophy Ordered VTE Exclusion Pharmacological: N/A:VTE Prophy Ordered Plan/Urinary Catheter Urinary Catheter: Other Catheter: (catheter will need to stay in for 7-10 days given bladder surgery) Plan - appreciate hospitalist service for w/u and treatment of hypoxia and collapsed lung - percocet prn pain - d/c MARTINEZ drain - strict I/Os - SCDs when in bed - SQH - ambulate - low salt diet VALENTINA RIZO MD Jul 17, 2019 11:02
--- NOTE | 2019-07-17 11:49 | REP ---
Chest x-ray: Two views. History: Left lung atelectasis. Comparison study: July 16, 2019. Findings: There is some improvement in aeration in the left lung. There is residual lobe are atelectasis in the left lower lobe distribution. Some degree of left pleural effusion may be present as well. The right lung is well inflated and clear. The heart is not enlarged although its borders are difficult to evaluate. There is shift of mediastinum to the left. Impression: Improved aeration in the left upper lobe. Lobar atelectasis persists in the left lower lobe. Electronically Signed by Luisito Smith MD 07/17/2019 11:40 A
--- NOTE | 2019-07-17 13:06 | IPNPDOC ---
Date Seen The patient was seen on 07/17/19. Progress Note SUBJECTIVE: 63-year-old female with past medical history of urothelial carcinoma, COPD, obstructive sleep apnea, and hypothyroidism was admitted for right nephrectomy and ureterectomy. She was doing well postop but progressively developed hypoxemia and dyspnea, imaging revealed collapsed left lung, likely due to aspiration during/after surgery. She was transferred to the ICU, reports significant improvement since yesterday, currently resting in bed on nasal cannula at 3 L, reports ambulating without much difficulty. She continues to have slight dyspnea on exertion, not on home oxygen. She is having cough productive of white/yellow sputum, compliant with incentive spirometer. She has no additional complaints, denies chest pain, abdominal pain, vomiting or diarrhea. 10 point review systems negative except for above PHYSICAL EXAMINATION: VITAL SIGNS: Please see below. GENERAL: No distress HEENT: Normocephalic, atraumatic, moist mucous membranes NECK: Supple CARDIOVASCULAR EXAMINATION: S1, S2, no murmurs RESPIRATORY EXAMINATION: Absent breath sounds on the left, clear to auscultation on the right, no wheezing ABDOMINAL EXAMINATION: Soft, nontender, nondistended, positive bowel sounds EXTREMITIES: Range of motion intact SKIN: No rash NEUROLOGICAL EXAMINATION: Alert and oriented 3, no focal deficits PSYCHIATRIC EXAMINATION: Calm and cooperative LABORATORY DATA, IMAGING STUDIES, MICROBIOLOGY: Please see below. DVT prophylaxis ordered?: Yes ASSESSMENT AND PLAN: 63-year-old female, history of urothelial carcinoma status post right nephrectomy and ureterectomy with subsequent atelectasis of left lung, possibly due to aspiration. PROBLEMS: 1. Atelectasis of left lung: . Possibly related to aspiration, right side down when laying in bed, repeat chest x-ray with increased aeration of left upper lobe, left lower lobe remains collapsed, with dependent pleural effusion. Will start hypertonic saline nebs, chest PT, incentive spirometry, duonebs when necessary and empiric Zosyn. Continue IV steroids for now, submental oxygen to maintain oxygen saturation above 90%, PT, OT. 2. Urothelial carcinoma: . Status post right nephrectomy and ureterectomy, MARTINEZ drain removed, surgically stable, postop management as per primary team. 3. Obstructive sleep apnea:, Continue CPAP with home settings. 4. Hypothyroidism - Continue levothyroxine. DVT prophylaxis: Heparin subcutaneous. GI prophylaxis: Not needed VS, I&O, 24H, Fishbone Vital Signs/I&O Vital Signs Date Time Temp Pulse Resp B/P (MAP) Pulse Ox O2 Delivery O2 Flow Rate FiO2 07/17/19 08:00 3.0 07/17/19 08:00 97.8 90 18 148/83 (104) 95 07/17/19 00:00 Nasal Cannula I&O- Last 24 Hours up to 6 AM 07/17/19 06:00 Intake Total 1320 ml Output Total 3860 ml Balance -2540 ml Laboratory Data 24H LABS Laboratory Tests 2 07/16/19 17:11: D-Dimer, Quantitative 3709.32H 07/17/19 04:50: Nucleated Red Blood Cells % (auto) 0.0, Anion Gap 3L, Glomerular Filtration Rate 59.2, Calcium Level 8.9 CBC/BMP Laboratory Tests 07/17/19 04:50 JOHNATHAN NINO MD Jul 17, 2019 13:06
[2019-07-17] MEDS: PIPERACILLIN/TAZOBACTAM SOD 3.375 GM in D5W MINI-BAG PLUS 50 ML IV SCH ×2 (13:07→18:48)
[2019-07-17] MEDS: SODIUM CHLORIDE HYPERTONIC 3% 15ML NEB SOL INH SCH ×2 (13:35→19:46)
[2019-07-18] MEDS: PIPERACILLIN/TAZOBACTAM SOD 3.375 GM in D5W MINI-BAG PLUS 50 ML IV SCH ×4 (01:21→17:55)
[2019-07-18] MEDS: ACETAMINOPHEN TAB 650MG DOSE (2X325MG) PO PRN (01:22)
[2019-07-18] MEDS: IPRATROPIUM 0.5MG/ALBUTEROL 2.5MG INH SOL UD 3ML (DUONEB)(J7620) NEB SCH ×4 (02:01→20:00)
[2019-07-18] MEDS: SODIUM CHLORIDE HYPERTONIC 3% 15ML NEB SOL INH SCH ×6 (02:02→20:00)
[2019-07-18 03:00] VITALS: BP 163/90
[2019-07-18 06:00] VITALS: BP 163/88
[2019-07-18] MEDS: LEVOTHYROXINE 25MCG TABLET (0.025MG) PO SCH (06:08)
[2019-07-18] MEDS: HEPARIN SOD (PORCINE) 5000 UNITS/ML VIAL SC SCH ×3 (06:10→20:29)
[2019-07-18 07:07] LABS: HEMATOCRIT 38.5 % (36.0-47.0); HEMOGLOBIN 12.4 g/dl (12.0-15.5); MEAN CORPUSCULAR HEMOGLOBIN 31.6 pg (27.0-33.0); MEAN CORPUSCULAR HGB CONC 32.2 g/dl (32.0-36.5); MEAN CORPUSCULAR VOLUME 98.2 fl (80.0-96.0); PLATELET COUNT, AUTOMATED 262 10^3/uL (150-450); RED BLOOD COUNT 3.92 10^6/uL (4.00-5.40); WHITE BLOOD COUNT 13.7 10^3/uL (4.0-10.0)
[2019-07-18] MEDS: COMBIVENT RESPIMAT 100-20MCG INHALER 4GM INH SCH ×2 (07:16→20:00)
[2019-07-18 07:41] LABS: ALBUMIN 2.5 GM/DL (3.2-5.2); BILIRUBIN,TOTAL 0.2 MG/DL (0.2-1.0); CREATININE FOR GFR 1.07 MG/DL (0.55-1.30); GLOMERULAR FILTRATION RATE 54.8 (>45); MAGNESIUM LEVEL 1.7 MG/DL (1.8-2.4); PHOSPHORUS LEVEL 2.6 MG/DL (2.5-4.9); POTASSIUM SERUM 4.2 MEQ/L (3.5-5.1); TOTAL PROTEIN 6.8 GM/DL (6.4-8.2)
[2019-07-18] MEDS ORDERED: PERCOCET PO (09:23)
[2019-07-18] MEDS ORDERED: COLA100C5 PO (09:23)
[2019-07-18] MEDS ORDERED: K-PHOS NEUTRAL 250MG TABLET (SOD.PHOSPHATE/POT.PHOSPHATE) PO ONE (10:00)
[2019-07-18] MEDS: DOCUSATE SODIUM 100 MG CAP PO SCH ×2 (10:01→20:28)
[2019-07-18] MEDS: MAG SULF 1GM/100ML (MAG RUN) 1 GM in IV 1 EA IV SCH ×2 (10:02→11:19)
[2019-07-18 10:09] VITALS: BP 123/66
--- NOTE | 2019-07-18 12:43 | IPNPDOC ---
Subjective Review oF Systems Chief Complaint The patient is a 63-year-old female admitted with a reason for visit of Urothelial Carcinoma. Events since Last Encounter No acute events o/n. Good pain control. No n/v. Tolerating regular diet. No f/c/ns. Objective Physical Examination General Exam: Alert, Cooperative, No Acute Distress ABDOMEN EXAM: Soft, Tenderness (mild), Other (incisions clean/dry/intact) Skin Exam: Nl turgor and temperature Neuro Exam: Normal Speech Psych Exam: Mental status NL, Mood NL Other physical findings catheter draining clear yellow urine Vital Signs/I&O Vital Signs Date Time Temp Pulse Resp B/P (MAP) Pulse Ox O2 Delivery O2 Flow Rate FiO2 07/18/19 10:09 97.7 98 16 123/66 (85) 92 Room Air 07/18/19 06:00 1.0 I&O- Last 24 Hours up to 6 AM 07/18/19 06:00 Intake Total 1505 ml Output Total 645 ml Balance 860 ml Laboratory Data Labs 24H Laboratory Tests 2 07/18/19 06:36: Nucleated Red Blood Cells % (auto) 0.0, Anion Gap 4L, Glomerular Filtration Rate 54.8, Calcium Level 9.0, Phosphorus Level 2.6, Magnesium Level 1.7L, Total Bilirubin 0.2, Aspartate Amino Transf (AST/SGOT) 16, Alanine Aminotransferase (ALT/SGPT) 44, Alkaline Phosphatase 98, Total Protein 6.8, Albumin 2.5L, Albumin/Globulin Ratio 0.58L CBC/BMP Laboratory Tests 07/18/19 06:36 Assessment/Plan Date Seen The patient was seen on 07/18/19. Patient Summary This is a 63 y/o F POD4 right robotic nephroureterectomy, now found to have bilateral pleural effusions, with partial atelectasis/collapse of the left lung on chest CT. Her Hb is stable. Cr is stable at 1. UOP has been very good. MARTINEZ removed yesterday. Plan/VTE VTE Prophylaxis Ordered?: Yes VTE Exclusion Mechanical Proph: N/A:VTE Prophy Ordered VTE Exclusion Pharmacological: N/A:VTE Prophy Ordered Plan/Urinary Catheter Urinary Catheter: Other Catheter: (catheter will need to stay in for 7-10 days given bladder surgery) Plan - appreciate hospitalists care for hypoxia - percocet prn pain - strict I/Os - catheter to gravity drainage - low salt diet - hospitalist service will be taking over care of patient as she has no surgical problems at this time - she will f/u w/ urology next week for catheter removal - pathology results from surgery were discussed w/ the patient this morning VALENTINA RIZO MD Jul 18, 2019 12:43
--- NOTE | 2019-07-18 13:25 | IPNPDOC ---
Date Seen The patient was seen on 07/18/19. Progress Note SUBJECTIVE: 63-year-old female with past medical history of urothelial carcinoma, COPD, obstructive sleep apnea, and hypothyroidism was admitted for right nephrectomy and ureterectomy. She was doing well postop but progressively developed hypoxemia and dyspnea, imaging revealed collapsed left lung, likely due to aspiration during/after surgery. She was transferred to the ICU, reports significant improvement since yesterday, currently resting in bed on nasal cannula at 3 L, reports ambulating without much difficulty. She continues to have slight dyspnea on exertion, not on home oxygen. She is having cough productive of white/yellow sputum, compliant with incentive spirometer. She has no additional complaints, denies chest pain, abdominal pain, vomiting or diarrhea. 07/18/2019 Patient reports improvement in her breathing, continues to have coughing with productive sputum, no longer requiring supplemental oxygen at rest, only with activity. She still gets very dyspneic when moving in bed/ambulating. She has noticed exquisite this time, denies chest pain, vomiting, abdominal pain or diarrhea. 10 point review systems negative except for above PHYSICAL EXAMINATION: VITAL SIGNS: Please see below. GENERAL: No distress HEENT: Normocephalic, atraumatic, moist mucous membranes NECK: Supple CARDIOVASCULAR EXAMINATION: S1, S2, no murmurs RESPIRATORY EXAMINATION: Left lower lobe breath sounds appreciated today, though significantly diminished. Left upper lobe clear to auscultation, normal breath sounds on the right side. ABDOMINAL EXAMINATION: Soft, nontender, nondistended, positive bowel sounds EXTREMITIES: Range of motion intact SKIN: No rash NEUROLOGICAL EXAMINATION: Alert and oriented 3, no focal deficits PSYCHIATRIC EXAMINATION: Calm and cooperative LABORATORY DATA, IMAGING STUDIES, MICROBIOLOGY: Please see below. DVT prophylaxis ordered?: Yes ASSESSMENT AND PLAN: 63-year-old female, history of urothelial carcinoma status post right nephrectomy and ureterectomy with subsequent atelectasis of left lung, possibly due to aspiration. PROBLEMS: 1. Atelectasis of left lung: Possibly related to aspiration, right side down when laying in bed, repeat chest x-ray with increased aeration of left upper lobe, left lower lobe remains collapsed, with dependent pleural effusion. Continue hypertonic saline nebs, chest PT, incentive spirometry, duonebs when necessary and empiric Zosyn. Discontinue IV fluids, supplemental oxygen when needed to maintain O2 sats of 90%, continue PT, OT. 2. Urothelial carcinoma: . Status post right nephrectomy and ureterectomy, MARTINEZ drain removed, surgically stable, Mcclain to remain, Will follow up outpatient with Dr. Turcios. 3. Obstructive sleep apnea: Continue CPAP with home settings. 4. Hypothyroidism - Continue levothyroxine. DVT prophylaxis: Heparin subcutaneous. GI prophylaxis: Not needed VS, I&O, 24H, Fishbone Vital Signs/I&O Vital Signs Date Time Temp Pulse Resp B/P (MAP) Pulse Ox O2 Delivery O2 Flow Rate FiO2 07/18/19 10:09 97.7 98 16 123/66 (85) 92 Room Air 07/18/19 06:00 1.0 I&O- Last 24 Hours up to 6 AM 07/18/19 05:59 Intake Total 1505 ml Output Total 645 ml Balance 860 ml Laboratory Data 24H LABS Laboratory Tests 2 07/18/19 06:36: Nucleated Red Blood Cells % (auto) 0.0, Anion Gap 4L, Glomerular Filtration Rate 54.8, Calcium Level 9.0, Phosphorus Level 2.6, Magnesium Level 1.7L, Total Bilirubin 0.2, Aspartate Amino Transf (AST/SGOT) 16, Alanine Aminotransferase (ALT/SGPT) 44, Alkaline Phosphatase 98, Total Protein 6.8, Albumin 2.5L, Albumin/Globulin Ratio 0.58L CBC/BMP Laboratory Tests 07/18/19 06:36 JOHNATHAN NINO MD Jul 18, 2019 13:25
--- NOTE | 2019-07-18 13:55 | REP ---
Chest x-ray: Two views. History: Left lower lobe collapse/atelectasis. Comparison study: July 17 and July 16 2019. Findings: There is less aeration in the left upper lobe today than was present on yesterday's chest x-ray. There is persistent lobe are collapse in the left lower lobe. There is volume loss in the left hemithorax as before. Right lung remains clear. Impression: Recurrent partial collapse left upper lobe. Persistent lobe are collapse left lower lobe. Electronically Signed by Luisito Smith MD 07/18/2019 08:31 A
[2019-07-18 14:20] VITALS: BP 125/65
--- NOTE | 2019-07-18 17:17 | ECGEPIP ---
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
[2019-07-18 22:00] VITALS: BP 147/84
[2019-07-19] MEDS: PIPERACILLIN/TAZOBACTAM SOD 3.375 GM in D5W MINI-BAG PLUS 50 ML IV SCH ×2 (01:28→06:01)
[2019-07-19] MEDS: SODIUM CHLORIDE HYPERTONIC 3% 15ML NEB SOL INH SCH ×2 (01:38→03:39)
[2019-07-19] MEDS: IPRATROPIUM 0.5MG/ALBUTEROL 2.5MG INH SOL UD 3ML (DUONEB)(J7620) NEB SCH (01:39)
[2019-07-19 02:00] VITALS: BP 125/53
[2019-07-19 06:00] VITALS: BP 141/85
[2019-07-19] MEDS: LEVOTHYROXINE 25MCG TABLET (0.025MG) PO SCH (06:01)
[2019-07-19] MEDS: HEPARIN SOD (PORCINE) 5000 UNITS/ML VIAL SC SCH (06:01)
[2019-07-19 07:34] LABS: HEMOGLOBIN 12.5 g/dl (12.0-15.5); MEAN CORPUSCULAR HEMOGLOBIN 31.6 pg (27.0-33.0); MEAN CORPUSCULAR HGB CONC 32.1 g/dl (32.0-36.5); MEAN CORPUSCULAR VOLUME 98.7 fl (80.0-96.0); PLATELET COUNT, AUTOMATED 256 10^3/uL (150-450); RED BLOOD COUNT 3.95 10^6/uL (4.00-5.40); WHITE BLOOD COUNT 10.9 10^3/uL (4.0-10.0)
[2019-07-19 07:58] LABS: CALCIUM LEVEL 8.4 MG/DL (8.8-10.2); CREATININE FOR GFR 1.1 MG/DL (0.55-1.30); GLOMERULAR FILTRATION RATE 53.1 (>45); MAGNESIUM LEVEL 1.8 MG/DL (1.8-2.4); PHOSPHORUS LEVEL 3.1 MG/DL (2.5-4.9); POTASSIUM SERUM 3.6 MEQ/L (3.5-5.1)
--- NOTE | 2019-07-19 08:15 | REP ---
Chest x-ray: Two views. History: Left lower lobe collapse. Comparison study: July 18, 2019. Findings: There is blunting of the left lateral pleural angle. Increased density is again seen behind the heart and there is much improved aeration in the left hemithorax compared with yesterday's chest radiograph. The right lung remains clear. There are degenerative changes in the thoracic spine. An old healed fracture is seen in the right proximal humerus. Impression: Much improved aeration in the left lung. Some persistent atelectasis left lower lobe. Small left pleural effusion. Electronically Signed by Luisito Smith MD 07/19/2019 08:06 A
[2019-07-19 10:00] VITALS: BP 144/80
[2019-07-19] MEDS ORDERED: POTASSIUM CHLORIDE 10 MEQ SR TABLET PO ONE (10:00)
[2019-07-19] MEDS: MAG SULF 1GM/100ML (MAG RUN) 1 GM in IV 1 EA IV SCH ×2 (10:27→11:41)
[2019-07-19] MEDS: DOCUSATE SODIUM 100 MG CAP PO SCH (10:27)
[2019-07-19] MEDS: ACETAMINOPHEN TAB 650MG DOSE (2X325MG) PO PRN ×2 (10:33→14:02)
--- NOTE | 2019-07-19 11:51 | IPNPDOC ---
Subjective Review oF Systems Chief Complaint The patient is a 63-year-old female admitted with a reason for visit of Urothelial Carcinoma. General: Denies: ROS Unobtainable, Chills, Night Sweats, Fatigue, Malaise, Normal Appetite, Other Symptoms Constitutional: Denies: Fever, Chills, Sweats, Weakness, Malaise, Other Eyes: Denies: Pain, Vision change, Conjunctivae inflammation, Eyelid i nflammation, Redness, Other ENT: Denies: Head Aches, Ear Pain, Dysphagia, Sinus Congestion, Post Nasal Drip, Sore Throat, Epistaxis, Other Symptoms Skin: Denies: Rash, Lesions, Jaundice, Bruising, Itching, Dry, Breakdown, Nail Changes, Other Pulmonary: Denies: Dyspnea, Cough, Pleuritic Chest Pain, Other Symptoms Cardiovascular: Denies Chest Pain, Denies Palpitations, Denies Orthopnea, Denies Paroxysmal Noc. Dyspnea, Denies Edema, Denies Lt Headedness, Denies Other Symptoms Gastrointestinal: Denies: Nausea, Vomiting, Abdominal Pain, Diarrhea, Constipation, Melena, Hematochezia, Other Symptoms Genitourinary: Denies: Dysuria, Frequency, Incontinence, Hematuria, Retention, Other Symptoms Hematologic: Denies: Bruising, Bleeding Excessively, Petecchia, Purpura, Enlarged Lymph Nodes, Other Hematologic Endocrine: Denies: Polydipsia, Polyphagia, Polyuria, Heat Intolerance, Cold Intolerance, Other Endocrine Sx Musculoskeletal: Denies: Neck Pain, Back Pain, Shoulder Pain, Arm Pain, Hand Pain, Leg Pain, Foot Pain, Joint Pain, Muscle Pain, Spasms, Other Symptoms Neurological: Denies: Weakness, Numbness, Incoordination, Change in Speech, Confusion, Seizures, Other Symptoms Psych: Denies: Mood Normal, Anxiety, Depression, Memory Issues, Thoughts of Self Harm, Anger, Thoughts of harming Other, Other Psych Objective Physical Examination General Exam: Alert, Cooperative, No Acute Distress ABDOMEN EXAM: Normal bowel sounds, Soft, Tenderness (mild), Other (incisions clean/dry/intact) Skin Exam: Nl turgor and temperature Neuro Exam: Normal Speech Psych Exam: Mental status NL, Mood NL Vital Signs/I&O Vital Signs Date Time Temp Pulse Resp B/P (MAP) Pulse Ox O2 Delivery O2 Flow Rate FiO2 07/19/19 10:00 97.8 93 18 144/80 (101) 95 Room Air 07/19/19 06:00 1.0 I&O- Last 24 Hours up to 6 AM 07/19/19 05:59 Intake Total 1540 ml Output Total 300 ml Balance 1240 ml Laboratory Data Labs 24H Laboratory Tests 2 07/19/19 07:21: Nucleated Red Blood Cells % (auto) 0.0, Anion Gap 5L, Glomerular Filtration Rate 53.1, Calcium Level 8.4L, Phosphorus Level 3.1, Magnesium Level 1.8 CBC/BMP Laboratory Tests 07/19/19 07:21 Assessment/Plan Date Seen The patient was seen on 07/19/19. Patient Summary Pt with no resp or pain complaints O: Sats 95%. VSS. Pt A&Ox3 A: Doing well post Robotic nephroureterectomy for low grade, superficial renal TCC P: Home per hosp recs with [facility]. F/U as sched with Dr. Turcios. Sign Off. Plan/VTE VTE Prophylaxis Ordered?: Yes VTE Exclusion Mechanical Proph: N/A:VTE Prophy Ordered VTE Exclusion Pharmacological: N/A:VTE Prophy Ordered Plan/Urinary Catheter Urinary Catheter: Other Catheter: (catheter will need to stay in for 7-10 days given bladder surgery) Plan Anticipated Discharge: Home With Services SHABNAM BUSTMAANTE MD Jul 19, 2019 11:51
[2019-07-19 14:06] VITALS: BP 147/84
--- NOTE | 2019-07-19 17:49 | DS.PDOC ---
Discharge Summary General Date of Admission Jul 14, 2019 at 05:36 Date of Discharge 07/19/2019 Attending Physician: JOHNATHAN NINO MD Discharge Summary PROCEDURES PERFORMED DURING STAY: Robotic right nephrectomy and ureterectomy. ADMITTING DIAGNOSES: 1. Robotic right nephrectomy and ureterectomy. DISCHARGE DIAGNOSES: 1. Robotic right nephrectomy and ureterectomy. COMPLICATIONS/CHIEF COMPLAINT: Urothelial Carcinoma. HISTORY OF PRESENT ILLNESS: 63-year-old female with past medical history of urothelial carcinoma, COPD, was admitted for robotic right nephrectomy and ureterectomy. She had an uneventful surgery, but developed acute hypoxemia, 1-2 days postop, found to have complete collapse of the left lung, was admitted in the ICU for monitoring. She likely developed aspiration during/after the procedure, was treated with hypertonic saline nebs/chest physical therapy with subsequent improvement in left lung aeration, followed with daily chest x-rays, now with near complete aeration of the left lung, continues to have slight atelectasis of the left lower lobe along with a dependent pleural effusion. She was initially requiring supplemental oxygen, but has improved daily to the point that she is no longer requiring any oxygen, even when ablating with physical the rapy. Patient has been cleared by physical therapy to go home with home services. Patient is comfortable in bed, without any dyspnea or chest pain, continues to have minimal cough, hemodynamically stable for discharge. Patient is to follow up with Dr. Turcios for further care, will be discharged with Mcclain catheter in place. HOSPITAL COURSE: As above. DISCHARGE MEDICATIONS: Please see below. ALLERGIES: Please see below. PHYSICAL EXAMINATION: VITAL SIGNS: Please see below. GENERAL: No distress, obese HEENT: Normocephalic, atraumatic, moist mucous membranes NECK: Supple CARDIOVASCULAR EXAMINATION: S1, S2, no murmurs RESPIRATORY EXAMINATION: Diminished in the left lower lobe, significant improved from yesterday, clear on the right side ABDOMINAL EXAMINATION: Soft, nontender, nondistended, positive bowel sounds EXTREMITIES: Range of motion intact SKIN: No rash NEUROLOGICAL EXAMINATION: Alert and oriented 3, no focal deficits PSYCHIATRIC EXAMINATION: Calm and cooperative LABORATORY DATA: Please see below. IMAGING: Chest x-ray, small area of atelectasis in the left lower lobe with dependent pleural effusion PROGNOSIS: Good ACTIVITY: As tolerated. DIET: Cardiac DISCHARGE PLAN: She is to follow-up with Dr. Turcios and PCP in 1-2 weeks DISPOSITION: 01 Home, Self-Care. DISCHARGE INSTRUCTIONS: 1. As above. DISCHARGE CONDITION: Stable. TIME SPENT ON DISCHARGE: Greater than 36 minutes. Vital Signs/I&Os Vital Signs Date Time Temp Pulse Resp B/P (MAP) Pulse Ox O2 Delivery O2 Flow Rate FiO2 07/19/19 14:06 97.7 103 18 147/84 (105) 90 Room Air 07/19/19 06:00 1.0 I&O- Last 24 Hours up to 6 AM 07/19/19 06:00 Intake Total 1540 ml Output Total 650 ml Balance 890 ml Laboratory Data Labs 24H Laboratory Tests 2 07/19/19 07:21: Nucleated Red Blood Cells % (auto) 0.0, Anion Gap 5L, Glomerular Filtration Rate 53.1, Calcium Level 8.4L, Phosphorus Level 3.1, Magnesium Level 1.8 CBC/BMP Laboratory Tests 07/19/19 07:21 Discharge Medications Scheduled Cholecalciferol (Vitamin D3) (Vitamin D3) 50,000 Unit Capsule, 50,000 UNIT PO 1XWK, (Reported) Docusate Sodium (Colace) 100 Mg Capsule, 100 MG PO BID Fluticasone Furoate (Arnuity Ellipta) 200 Mcg Blst.w.dev, 1 PUFF INH DAILY, (Reported) Ipratropium/Albuterol Sulfate (Combivent Respimat 20-100 Mcg) 4 Gm Mist.inhal, 2 PUFF INH BID, (Reported) Levothyroxine Sodium (Levothyroxine Sodium) 25 Mcg Tablet, 25 MCG PO DAILY, (Reported) Umeclidinium Brm/Vilanterol Tr (Anoro Ellipta 62.5-25 Mcg INH) 1 Each Blst.w.dev, 1 PUFFS INH DAILY, (Reported) Scheduled PRN Acetaminophen (Acetaminophen) 500 Mg Tablet, 500 MG PO Q6HP PRN for PAIN, (Reported) Oxycodone/Acetaminophen (Oxycodone-Acetaminophen 5-325) 1 Each Tablet, 1-2 TAB PO Q6HP PRN for MODERATE/SEVERE PAIN (PS 5-10) Allergies Coded Allergies: ciprofloxacin (Verified Adverse Reaction, Intermediate, LEG SWELLING, 07/14/19) levofloxacin (Verified Adverse Reaction, Intermediate, LEG SWELLING, 07/14/19) duloxetine (Verified Adverse Reaction, Mild, GI DISTRESS, 07/14/19) meloxicam (Verified Adverse Reaction, Mild, GI DISTRESS, 07/14/19) naproxen (Verified Adverse Reaction, Mild, GI UPSET/bleeding, 07/14/19) JOHNATHAN NINO MD Jul 19, 2019 17:49
== END 2019-07-19 14:25 | disposition home or self-care (01) | DRG 657 ==
LOC: M OR 05:36 → M MS5PR 17:00 → M ICU 07-16 22:32 → M MSPAV 07-17 16:31
PROVIDERS: ADMIT Urology; ATTEND Urology
PROC: 8E0W4CZ Robotic Assisted Procedure of Trunk Region, Percutaneous Endoscopic Approach (ICD-10-PCS; 2019-07-14)
PROC: 0TT04ZZ Resection of Right Kidney, Percutaneous Endoscopic Approach (ICD-10-PCS; principal; 2019-07-14 07:30)
PROC: 0TT64ZZ Resection of Right Ureter, Percutaneous Endoscopic Approach (ICD-10-PCS; 2019-07-14 07:30)
DX: C68.0 Malignant neoplasm of urethra (principal); E66.2 Morbid (severe) obesity with alveolar hypoventilation; J44.1 Chronic obstructive pulmonary disease with (acute) exacerbation; J98.11 Atelectasis; J90 Pleural effusion, not elsewhere classified; Z68.41 Body mass index [BMI] 40.0-44.9, adult; E03.9 Hypothyroidism, unspecified; I11.9 Hypertensive heart disease without heart failure; F17.200 Nicotine dependence, unspecified, uncomplicated; Z88.1 Allergy status to other antibiotic agents; Z88.6 Allergy status to analgesic agent; Z88.8 Allergy status to other drugs, medicaments and biological substances

== ENCOUNTER → 2019-07-30 | Outpatient (CLI) | payer MEDICARE, MEDICAID ==
[~2019-07-30] MED LIST changes: +COLA100C5 PO; +PERCOCET PO
--- NOTE | 2019-07-30 14:40 | REP ---
Clinical: Chronic obstructive pulmonary disease . Comparison: 07/19/2019 . Technique: PA and lateral. Findings: The mediastinum and cardiac silhouette are normal. The lung lipscomb are clear and without acute consolidation, effusion, or pneumothorax. Previously noted left lower lobe consolidation/effusion has resolved. The skeletal structures are intact and normal. Impression: 1. No acute cardiopulmonary process. 2. Previously noted left lower lobe consolidation resolved. Electronically Signed by Ramiro Villa MD 07/30/2019 02:32 P
== END ==
LOC: M RAD 13:58
PROVIDERS: ATTEND Nurse Practitioner Family
DX: J44.9 Chronic obstructive pulmonary disease, unspecified (principal); R91.8 Other nonspecific abnormal finding of lung field

== ENCOUNTER → 2019-11-18 | Outpatient (REF) | payer MEDICARE, MEDICAID | LOC: M SMT 12:27 | PROVIDERS: ATTEND Urology | DX: C67.9 Malignant neoplasm of bladder, unspecified (principal) ==

== ENCOUNTER → 2020-03-26 | Outpatient (REF) | payer MEDICARE, MEDICAID | LOC: M SMT 16:40 | PROVIDERS: ATTEND Urology | DX: C67.9 Malignant neoplasm of bladder, unspecified (principal); C68.9 Malignant neoplasm of urinary organ, unspecified ==

== ENCOUNTER → 2020-08-16 | Outpatient (REF) | payer OTHER | LOC: M SMT 16:42 | PROVIDERS: ATTEND Urology | DX: C68.9 Malignant neoplasm of urinary organ, unspecified (principal) ==

== ENCOUNTER → 2020-09-01 | Outpatient (CLI) | payer MEDICARE, MEDICAID ==
[~2020-09-01] MED LIST changes: +COLLCAP PO; +GLUCCAP2 PO; +VITA1TAB PO
== END ==
LOC: M LABSMTC 10:35
PROVIDERS: ATTEND Anesthesiology
DX: Z01.812 Encounter for preprocedural laboratory examination (principal); Z20.828 Contact with and (suspected) exposure to other viral communicable diseases

== ENCOUNTER 2020-09-06 09:07 | Day surgery (SDC) | payer MEDICARE, MEDICAID ==
[~2020-09-06] VITALS: Ht 167.6 cm; Wt 119.8 kg
[~2020-09-06 09:07] MED LIST changes: +LIDOCAINE 2% 100MG/5ML SDV (FOR ANES.) As Ordered ONE; +NS 1,000 ML IV ONE; +propofoL 200 MG/20 ML VIAL As Ordered ONE
[2020-09-06] MEDS ORDERED: ALBUTEROL SULFATE 2.5 MG/0.5 ML INH NEB SOLN INH ONE (10:15)
[2020-09-06] MEDS ORDERED: propofoL 200 MG/20 ML VIAL As Ordered ONE (11:20)
--- NOTE | 2020-09-06 11:44 | ROOR ---
Patient Name: Sabina Pastor Procedure Date: 09/06/2020 10:44 AM Date of : 1955 Age: 64 Room: [facility] Gender: Female Note Status: Finalized Procedure: Colonoscopy Indications: High risk colon cancer surveillance: Personal history of colonic polyps Providers: Sukumar Beltran MD Referring MD: Rafael PORTER MD Requesting Provider: Medicines: Monitored Anesthesia Care Complications: No immediate complications. Procedure: Pre-Anesthesia Assessment: - Prior to the procedure, a History and Physical was performed, and patient medications and allergies were reviewed. The patient is competent. The risks and benefits of the procedure and the sedation options and risks were discussed with the patient. All questions were answered and informed consent was obtained. Patient identification and proposed procedure were verified by the physician, the nurse and the anesthesiologist in the procedure room. Mental Status Examination: alert and oriented. Airway Examination: normal oropharyngeal airway and neck mobility. Respiratory Examination: clear to auscultation. CV Examination: normal. Prophylactic Antibiotics: The patient does not require prophylactic antibiotics. Prior Anticoagulants: The patient has taken no previous anticoagulant or antiplatelet agents. ASA Grade Assessment: II - A patient with mild systemic disease. After reviewing the risks and benefits, the patient was deemed in satisfactory condition to undergo the procedure. The anesthesia plan was to use monitored anesthesia care (MAC). Immediately prior to administration of medications, the patient was re-assessed for adequacy to receive sedatives. The heart rate, respiratory rate, oxygen saturations, blood pressure, adequacy of pulmonary ventilation, and response to care were monitored throughout the procedure. The physical status of the patient was re-assessed after the procedure. The Colonoscope was introduced through the anus and advanced to the cecum, identified by appendiceal orifice and ileocecal valve. The colonoscopy was performed without difficulty. The patient tolerated the procedure well. The quality of the bowel preparation was good. The ileocecal valve, appendiceal orifice, and rectum were photographed. Scope insertion time was 3 minutes. Scope withdrawal time was 9 minutes. The total duration of the procedure was 14 minutes. Findings: The perianal and digital rectal examinations were normal. Eight sessile polyps were found in the recto-sigmoid colon, transverse colon, ascending colon and cecum. The polyps were 4 to 10 mm in size. These polyps were removed with a hot snare. Resection and retrieval were complete. Multiple small and large-mouthed diverticula were found from sigmoid to descending colon. There was no evidence of diverticular bleeding. Non-bleeding external and internal hemorrhoids were found during retroflexion. The hemorrhoids were medium-sized. Impression: - Eight 4 to 10 mm polyps at the recto-sigmoid colon, in the transverse colon, in the ascending colon and in the cecum, removed with a hot snare. Resected and retrieved. - Moderate diverticulosis from sigmoid to descending colon. There was no evidence of diverticular bleeding. - Non-bleeding external and internal hemorrhoids. Recommendation: - Patient has a contact number available for emergencies. The signs and symptoms of potential delayed complications were discussed with the patient. Return to normal activities tomorrow. Written discharge instructions were provided to the patient. - High fiber diet. - Continue present medications. - Use fiber, for example Citrucel, Fibercon, Konsyl or Metamucil. - Await pathology results. - Repeat colonoscopy in 3 years for surveillance based on pathology results. - Telephone GI clinic for pathology results in 2 weeks. - Return to referring physician. Procedure Code(s): --- Professional --- 18001, Colonoscopy, flexible; with removal of tumor(s), polyp(s), or other lesion(s) by snare technique Diagnosis Code(s): --- Professional --- Z86.010, Personal history of colonic polyps K63.5, Polyp of colon K64.8, Other hemorrhoids K57.30, Diverticulosis of large intestine without perforation or abscess without bleeding CPT copyright 2019 [employer]. All rights reserved. The codes documented in this report are preliminary and upon elevator repairer review may be revised to meet current compliance requirements. Sukumar Beltran MD Sukumar Beltran MD 09/06/2020 11:45:01 AM Electronically signed by Sukumar Beltran MD Number of Addenda: 0 Note Initiated On: 09/06/2020 10:44 AM Estimated Blood Loss: Estimated blood loss was minimal.
[2020-09-06 12:00] VITALS: BP 145/70
== END 2020-09-06 12:19 | disposition home or self-care (01) ==
LOC: M OPP 09:07
PROVIDERS: ATTEND Internal Medicine Gastroenterology
DX: Z12.11 Encounter for screening for malignant neoplasm of colon (principal); Z86.010 Personal history of colon polyps; Z63.5 Disruption of family by separation and divorce; K57.30 Diverticulosis of large intestine without perforation or abscess without bleeding; K64.8 Other hemorrhoids; J44.9 Chronic obstructive pulmonary disease, unspecified; I10 Essential (primary) hypertension; E03.9 Hypothyroidism, unspecified; F17.210 Nicotine dependence, cigarettes, uncomplicated; Z79.899 Other long term (current) drug therapy; Z88.1 Allergy status to other antibiotic agents; Z88.6 Allergy status to analgesic agent; Z88.8 Allergy status to other drugs, medicaments and biological substances

== ENCOUNTER → 2020-12-31 | Outpatient (REF) | payer MEDICARE, MEDICAID ==
[~2020-12-31] MED LIST changes: -LIDOCAINE 2% 100MG/5ML SDV (FOR ANES.) As Ordered ONE; -NS 1,000 ML IV ONE; -propofoL 200 MG/20 ML VIAL As Ordered ONE
== END ==
LOC: M SMT 16:39
PROVIDERS: ATTEND Urology
DX: C68.9 Malignant neoplasm of urinary organ, unspecified (principal)

== ENCOUNTER → 2021-05-30 | Outpatient (REF) | payer MEDICARE, MEDICAID, OTHER | LOC: M SMT 11:54 | PROVIDERS: ATTEND Urology | DX: C68.9 Malignant neoplasm of urinary organ, unspecified (principal) ==

== ENCOUNTER → 2022-07-31 | Outpatient (REF) | payer MEDICARE, MEDICAID, OTHER ==
[~2022-07-31] MED LIST changes: +LEVO1TAB40 PO; -LEVO750T13 PO
== END ==
LOC: M SMT 12:46
PROVIDERS: ATTEND Urology
DX: R82.89 Other abnormal findings on cytological and histological examination of urine (principal)

== ENCOUNTER → 2022-08-21 | Outpatient (CLI) | payer MEDICARE, OTHER ==
[2022-08-21 15:58] LABS: CALCIUM LEVEL 8.7 MG/DL (8.3-10.6); CREATININE FOR GFR 1.25 MG/DL (0.55-1.30); GLOMERULAR FILTRATION RATE 45.4 (>45); POTASSIUM SERUM 4.7 MMOL/L (3.5-5.1)
== END ==
LOC: M PLALAB 14:11
PROVIDERS: ATTEND Physician Assistant
DX: N20.1 Calculus of ureter (principal)

== ENCOUNTER → 2023-07-30 | Outpatient (REF) | payer MEDICARE, MEDICAID | LOC: M SMT 17:26 | PROVIDERS: ATTEND Urology | DX: C67.9 Malignant neoplasm of bladder, unspecified (principal); C68.9 Malignant neoplasm of urinary organ, unspecified ==

== ENCOUNTER → 2024-08-11 | Outpatient (REF) | payer MEDICARE, MEDICAID | LOC: M SMT 13:12 | PROVIDERS: ATTEND Urology | DX: C68.9 Malignant neoplasm of urinary organ, unspecified (principal) | CPT/HCPCS: 52000; 88108; G0463 ==

== ENCOUNTER 2025-08-05 08:44 | Day surgery (SDC) | payer MEDICARE, MEDICAID ==
[~2025-08-05] VITALS: Ht 170.2 cm; Wt 116.8 kg
[~2025-08-05 08:44] MED LIST changes: +LIDOCAINE 2% 100 MG/5 ML SDV (FOR ANES.) As Ordered ONE; +MIDAZOLAM INJ 2 MG/2 ML VIAL As Ordered ONE; +TREL1AER IN
[2025-08-05] MEDS: LR 1,000 ML IV SCH (09:34)
[2025-08-05] MEDS: ERTAPENEM SODIUM 1 GM in NS MINI-BAG PLUS 50 ML IV ONE (09:42)
[2025-08-05] MEDS ORDERED: ACETAMINOPHEN 1000MG/100ML IV BAG As Ordered ONE (10:10)
[2025-08-05] MEDS ORDERED: ONDANSETRON 4MG/2ML VIAL As Ordered ONE (10:10)
[2025-08-05] MEDS ORDERED: dexAMETHasone 4 MG/ML 1 ML VIAL As Ordered ONE (10:10)
[2025-08-05] MEDS ORDERED: DESFLURANE 240 ML INHALANT As Ordered ONE (10:20)
[2025-08-05] MEDS ORDERED: PHENYLephrine 500MCG 5ML (100MCG/ML) SYRINGE As Ordered ONE (10:24)
[2025-08-05] MEDS: ISOVUE-300 61% 100 ML VIAL As Ordered ONE (10:30)
[2025-08-05] MEDS ORDERED: HYDROMORPHONE HCL 0.5 MG/0.5 ML SYRINGE IV PRN (11:00)
[2025-08-05] MEDS ORDERED: MORPHINE 4 MG/ML 1 ML VIAL IV PRN (11:00)
[2025-08-05] MEDS ORDERED: TAMS-18 PO (11:08)
[2025-08-05] MEDS ORDERED: OXYB5TAB14 PO (11:08)
[2025-08-05] MEDS ORDERED: OXYC1TAB23 PO (11:08)
[2025-08-05 14:06] VITALS: BP 126/60; TEMP 98; O2SAT 96
== END 2025-08-05 14:30 | disposition home or self-care (01) ==
LOC: M SDC 08:44
PROVIDERS: ATTEND Urology
DX: N13.2 Hydronephrosis with renal and ureteral calculous obstruction (principal); I48.91 Unspecified atrial fibrillation; E03.9 Hypothyroidism, unspecified; Z79.899 Other long term (current) drug therapy; Z79.51 Long term (current) use of inhaled steroids; Z87.891 Personal history of nicotine dependence; Z88.8 Allergy status to other drugs, medicaments and biological substances; Z88.1 Allergy status to other antibiotic agents; Z88.6 Allergy status to analgesic agent; Z86.718 Personal history of other venous thrombosis and embolism; J44.9 Chronic obstructive pulmonary disease, unspecified; G47.33 Obstructive sleep apnea (adult) (pediatric); Z85.51 Personal history of malignant neoplasm of bladder; Z90.5 Acquired absence of kidney; R32 Unspecified urinary incontinence; G62.9 Polyneuropathy, unspecified; E66.9 Obesity, unspecified; Z90.710 Acquired absence of both cervix and uterus; Z68.41 Body mass index [BMI] 40.0-44.9, adult
CPT/HCPCS: 52356; 74420; 82365; C1769; C1894; C2617; J0131; J1100; J1335; J2250; J2371; J2405; J3010; Q9967